=== PATIENT | female | born 1940 ===

== ENCOUNTER 2017-10-02 13:34 | Outpatient (CLI) | payer SELFPAY | END 2017-10-02 13:35 | disposition EMS.NT | LOC: EMS 13:34 | PROVIDERS: ATTEND Surgery | DX: Z04.1 Encounter for examination and observation following transport accident (principal); V53.5XXA Driver of pick-up truck or van injured in collision with car, pick-up truck or van in traffic accident, initial encounter; Y92.413 State road as the place of occurrence of the external cause ==